=== PATIENT | male | born 1955 | race Caucasian/White ===

== ENCOUNTER 2017-10-17 21:55 | Emergency (ER) | payer SELFPAY ==
--- NOTE | 2017-10-17 22:36 | EDM.PDOC ---
ED HPI GENERAL MEDICAL PROBLEM - General Chief Complaint: General Stated Complaint: RIGHT LEG Time Seen by Provider: 10/17/17 21:59 Source of Information: Reports: Patient, EMS, Family History Limitations: Reports: No Limitations - History of Present Illness INITIAL COMMENTS - FREE TEXT/NARRATIVE: Salomón is a 62 year old male who presents to the ED via private vehicle and police and EMS escort with c/o right sided weakness and slurred speech. His reports that yesterday around 1600 she noticed he was dragging his leg while they were in [employer] shopping. She reports she asked him about it and he reported he was "tired." She reports that throughout the day today she noticed he was dragging his right leg and was more weak on the right side. She reports he even had a fall due to this. She reports that he also started slurring his speech more. He refused to come in to the ED throughout the day. Shay reports she called his brother in law, who then came over and tried to convince him to come to the ED. He continued to refuse. EMS and police were called and eventually convinced him to present to the ED. He was brought in via private vehicle by his fiance. He reports he does not doctor regular. He does not take any medications, nor does he check his blood pressure. He reports he was on medications for blood pressure, but stopped taking them about 3 years ago. He reports his previous PCP "kept trying to get him to come in but he wouldn't." NIH upon arrival was 6. Patient is alert and oriented with slurred speech. Patient immediately sent to CT. - Related Data Allergies Allergy/AdvReac Type Severity Reaction Status Date / Time No Known Allergies Allergy Verified 10/17/17 22:00 Home Meds: Home Meds . [No Known Home Meds] 10/17/17 [History] ED EXAM, GENERAL - Physical Exam Exam: See Below Exam Limited By: No Limitations General Appearance: Alert, WD/WN, No Apparent Distress Eye Exam: Bilateral Eye: EOMI, Normal Fundi, Normal Inspection, PERRL Head: Atraumatic, Normocephalic Neck: Normal Inspection, Supple, Non-Tender, Full Range of Motion Respiratory/Chest: No Respiratory Distress, Lungs Clear, Normal Breath Sounds, No Accessory Muscle Use, Chest Non-Tender Cardiovascular: Normal Peripheral Pulses, Regular Rate, Rhythm, No Edema, No Gallop, No JVD, No Murmur, No Rub Peripheral Pulses: 2+: Radial (L), Radial (R), Dorsalis Pedis (L), Dorsalis Pedis (R) GI/Abdominal: Normal Bowel Sounds, Soft, Non-Tender, No Organomegaly, No Distention, No Abnormal Bruit, No Mass Back Exam: Normal Inspection, Full Range of Motion, NT Extremities: Normal Inspection, Normal Range of Motion, Non-Tender, No Pedal Edema, Normal Capillary Refill, Other (4/5 weaness to RUE & RLE) Neurological: Alert, Oriented, CN II-XII Intact, Normal Cognition, No Motor/ Sensory Deficits, Abnormal Gait (drags RLE) Psychiatric: Normal Affect, Normal Mood Skin Exam: Warm, Dry, Intact, Normal Color, No Rash Lymphatic: No Adenopathy Course - Vital Signs Last Recorded V/S: Last Vital Signs Temp 98.2 F 10/17/17 22:04 Pulse 82 10/17/17 23:15 Resp 18 10/17/17 22:25 BP 220/140 H 10/17/17 23:15 Pulse Ox 98 10/17/17 22:25 - Orders/Labs/Meds Orders: Active Orders 24 hr Category Date Time Status Head wo Cont [CT] Stat Exams 10/17/17 22:12 Taken Labetalol [Normodyne] Med 10/17/17 23:26 Once 20 mg IVPUSH ONETIME ONE Labs: Laboratory Tests 10/17/17 10/17/17 10/17/17 Range/Units 22:10 22:10 22:12 WBC 7.0 (5.0-10.0) 10^3/uL RBC 4.60 (4.50-6.00) 10^6/uL Hgb 14.5 (14.0-18.0) g/dL Hct 42.8 (40.0-54.0) % MCV 93.0 (82.0-94.0) fL MCH 31.5 (27.0-32.0) pg MCHC 33.9 (33.0-38.0) g/dL RDW Coeff of Julio Cesar 14.4 (11.0-15.0) % Plt Count 145 L (150-400) 10^3/uL Neut % (Auto) 60.8 (35-85) % Lymph % (Auto) 25.9 (10-55) % [place] % (Auto) 11.2 (0-16) % Eos % (Auto) 1.7 (0-5) % Baso % (Auto) 0.4 (0-3) % Neut # (Auto) 4.24 (1.80-7.00) 10^3/uL Lymph # (Auto) 1.81 (1.00-4.80) 10^3/uL [place] # (Auto) 0.78 (0.00-0.80) 10^3/uL Eos # (Auto) 0.12 (0.00-0.45) 10^3/uL Baso # (Auto) 0.03 10^3/uL PT 10.7 (9.7-12.3) SEC INR 1.03 (0.92-1.18) APTT 26.1 (23.2-32.3) SEC Sodium (136-145) mEq/L Potassium (3.5-5.0) mEq/L Chloride (98-106) mEq/L Carbon Dioxide (21-32) mmol/L BUN (7-18) mg/dL Creatinine (0.7-1.3) mg/dL Est Cr Clr Drug Dosing mL/min Estimated GFR (MDRD) (>=60) mL/min Glucose (75-99) mg/dL Calcium (8.4-10.1) mg/dL Total Bilirubin (0.0-1.0) mg/dL AST (15-37) U/L ALT (12-78) U/L Alkaline Phosphatase (46-116) U/L Lactate Dehydrogenase (100-190) U/L Creatine Kinase (35-232) U/L Troponin I (0.00-0.06) ng/mL Total Protein (6.4-8.2) g/dL Albumin (3.4-5.0) g/dL Urine Color Yellow (YELLOW) Urine Appearance Clear (CLEAR) Urine pH 7.0 (4.5-8.0) Ur Specific [place] 1.015 (1.003-1.020) Urine Protein 30 H (NEGATIVE) mg/dL Urine Glucose (UA) Negative (NEGATIVE) mg/dL Urine Ketones Negative (NEGATIVE) mg/dL Urine Occult Blood Trace-lysed H (NEGATIVE) Urine Nitrite Negative (NEGATIVE) Urine Bilirubin Negative (NEGATIVE) Urine Urobilinogen 0.2 (0.2-1.0) EU/dL Ur Leukocyte Esterase Negative (NEGATIVE) Urine RBC Not seen (0-5) /HPF Urine WBC Not seen (0-5) /HPF Ur Squamous Epith Cells Occasional H (NOT SEEN) /HPF Urine Bacteria Occasional H (NOT SEEN) /HPF 10/17/17 Range/Units 22:12 WBC (5.0-10.0) 10^3/uL RBC (4.50-6.00) 10^6/uL Hgb (14.0-18.0) g/dL Hct (40.0-54.0) % MCV (82.0-94.0) fL MCH (27.0-32.0) pg MCHC (33.0-38.0) g/dL RDW Coeff of Julio Cesar (11.0-15.0) % Plt Count (150-400) 10^3/uL Neut % (Auto) (35-85) % Lymph % (Auto) (10-55) % [place] % (Auto) (0-16) % Eos % (Auto) (0-5) % Baso % (Auto) (0-3) % Neut # (Auto) (1.80-7.00) 10^3/uL Lymph # (Auto) (1.00-4.80) 10^3/uL [place] # (Auto) (0.00-0.80) 10^3/uL Eos # (Auto) (0.00-0.45) 10^3/uL Baso # (Auto) 10^3/uL PT (9.7-12.3) SEC INR (0.92-1.18) APTT (23.2-32.3) SEC Sodium 138 (136-145) mEq/L Potassium 4.1 (3.5-5.0) mEq/L Chloride 105 (98-106) mEq/L Carbon Dioxide 30 (21-32) mmol/L BUN 21 H D (7-18) mg/dL Creatinine 1.4 H (0.7-1.3) mg/dL Est Cr Clr Drug Dosing 67.06 mL/min Estimated GFR (MDRD) 52 L (>=60) mL/min Glucose 107 H (75-99) mg/dL Calcium 9.6 (8.4-10.1) mg/dL Total Bilirubin 0.7 (0.0-1.0) mg/dL AST 32 (15-37) U/L ALT 50 (12-78) U/L Alkaline Phosphatase 66 (46-116) U/L Lactate Dehydrogenase 261 H (100-190) U/L Creatine Kinase 289 H (35-232) U/L Troponin I 0.136 H (0.00-0.06) ng/mL Total Protein 7.2 (6.4-8.2) g/dL Albumin 4.1 (3.4-5.0) g/dL Urine Color (YELLOW) Urine Appearance (CLEAR) Urine pH (4.5-8.0) Ur Specific [place] (1.003-1.020) Urine Protein (NEGATIVE) mg/dL Urine Glucose (UA) (NEGATIVE) mg/dL Urine Ketones (NEGATIVE) mg/dL Urine Occult Blood (NEGATIVE) Urine Nitrite (NEGATIVE) Urine Bilirubin (NEGATIVE) Urine Urobilinogen (0.2-1.0) EU/dL Ur Leukocyte Esterase (NEGATIVE) Urine RBC (0-5) /HPF Urine WBC (0-5) /HPF Ur Squamous Epith Cells (NOT SEEN) /HPF Urine Bacteria (NOT SEEN) /HPF Meds: Medications Discontinued Medications Generic Name Dose Route Start Last Admin Trade Name Freq PRN Reason Stop Dose Admin Labetalol HCl 20 mg 10/17/17 22:50 10/17/17 22:54 Normodyne IVPUSH 10/17/17 22:51 20 mg ONETIME ONE Administration Protocol - Re-Assessments/Exams Free Text/Narrative Re-Assessment/Exam: 10/17/17 22:[address], EKG, and lab results with patient and significant other. CT reveals nonspecific findings, unable to rule out acute infarct. No hemorrhage. Labs all stable. Troponin indeterminant. EKG reveals NSR with sinus arrythmia and RBBB. Discussed case with Dr. España (Neurology) [facility]. Recommend admission to hospitalist service for further workup and management. 10/17/17 22:[address] Prajapati (hospitalist) who accepted the patient for transfer. Patient is outside of the window for TPA or any neurological intervention given last known well of 1600 on 10/16/2017. 10/17/17 22:57 Discussed risks and benefits of transfer. Risks of transfer include worsening of condition, , or MVA enroute. Benefits of transfer include higher level of care, neurology consultation. Risks of nontransfer include worsening of condition, , and no neurological consultation. Benefits of nontransfer include close proximity to home and convenience. Patient voices understanding and is agreeable to transfer to [facility]. Departure - Departure Time of Disposition: 23:06 Disposition: DC/Tfer to Acute Hospital 02 Condition: Fair Clinical Impression: CVA, Cerebrovascular accident, Hypertensive urgency - Discharge Information *PRESCRIPTION DRUG MONITORING PROGRAM REVIEWED*: Not Applicable *COPY OF PRESCRIPTION DRUG MONITORING REPORT IN PATIENT JOEL: Not Applicable Referrals: Smooth Moncada PA-C [Primary Care Provider] - Forms: ED Department Discharge - Problem List & Annotations (1) CVA, Cerebrovascular accident SNOMED Code(s): 974842865 Code(s): I63.9 - CEREBRAL INFARCTION, UNSPECIFIED Status: Acute Priority : High Current Visit: Yes (2) Hypertensive urgency SNOMED Code(s): 003041011 Code(s): I16.0 - HYPERTENSIVE URGENCY Status: Acute Priority: High Current Visit: Yes - Problem List Review Problem List Initiated/Reviewed/Updated: Yes - My Orders Last 24 Hours: My Active Orders 10/17/17 22:12 Head wo Cont [CT] Stat 10/17/17 23:26 Labetalol [Normodyne] 20 mg IVPUSH ONETIME ONE - Assessment/Plan Last 24 Hours: My Active Orders 10/17/17 22:12 Head wo Cont [CT] Stat 10/17/17 23:26 Labetalol [Normodyne] 20 mg IVPUSH ONETIME ONE Plan: Patient will be transferred to [facility] Intermediate Critical Care Unit for further workup and management. He is outside the window for TPA or any neurologic intervention.
[2017-10-17] MEDS: Labetalol 100 MG/20 ML MDV IVPUSH ONE (22:54)
--- NOTE | 2017-10-17 23:21 | EDM.PDOC ---
ED HPI GENERAL MEDICAL PROBLEM - General Chief Complaint: General Stated Complaint: RIGHT LEG Time Seen by Provider: 10/17/17 21:59 Source of Information: Reports: Patient, EMS, Family History Limitations: Reports: No Limitations - History of Present Illness INITIAL COMMENTS - FREE TEXT/NARRATIVE: Salomón is a 62 year old male who presents to the ED via private vehicle and police and EMS escort with c/o right sided weakness and slurred speech. His reports that yesterday around 1600 she noticed he was dragging his leg while they were in [employer] shopping. She reports she asked him about it and he reported he was "tired." She reports that throughout the day today she noticed he was dragging his right leg and was more weak on the right side. She reports he even had a fall due to this. Denies injuries with fall. She reports that he also started slurring his speech more. He refused to come in to the ED throughout the day. Shay reports she called his brother in law, who then came over and tried to convince him to come to the ED. He continued to refuse. EMS and police were called and eventually convinced him to present to the ED. He was brought in via private vehicle by his fiance. He reports he does not doctor regular. He does not take any medications, nor does he check his blood pressure. He reports he was on medications for blood pressure, but stopped taking them about 3 years ago. He reports his previous PCP "kept trying to get him to come in but he wouldn't." NIH upon arrival was 6. See attached documentation. Patient is alert and oriented with slurred speech. Patient immediately sent to CT. Onset Date: 10/16/17 Onset Time: 16:00 Associated Symptoms: Reports: Weakness (RLE & RUE), Other (slurred speech). Denies: Confusion, Chest Pain, Cough, cough w sputum, Diaphoresis, Fever/Chills , Headaches, Loss of Appetite, Malaise, Nausea/Vomiting, Rash, Seizure, Shortness of Breath, Syncope Treatments TANK COOPER: Reports: Aspirin - Related Data Allergies Allergy/AdvReac Type Severity Reaction Status Date / Time No Known Allergies Allergy Verified 10/17/17 22:00 Home Meds: Home Meds . [No Known Home Meds] 10/17/17 [History] Past Medical History Cardiovascular History: Reports: Hypertension - Past Surgical History GI Surgical History: Reports: Appendectomy Male Surgical History: Reports: Vasectomy Social & Family History - Family History Family Medical History: Noncontributory - Tobacco Use Smoking Status *Q: Never Smoker Second Hand Smoke Exposure: Yes ED ROS GENERAL - Review of Systems Review Of Systems: See Below Constitutional: Reports: Weakness (Right sided). Denies: Fever, Chills, Fatigue HEENT: Reports: No Symptoms Respiratory: Reports: No Symptoms Cardiovascular: Reports: No Symptoms Endocrine: Reports: No Symptoms GI/Abdominal: Reports: No Symptoms : Reports: No Symptoms Musculoskeletal: Reports: No Symptoms Skin: Reports: No Symptoms Neurological: Reports: Weakness (RUE & RLE), Change in Speech (slurred), Gait Disturbance (drag RLE). Denies: Confusion, Dizziness, Headache, Numbness, Paresthesia, Pre-Existing Deficit, Seizure, Syncope, Tingling, Tremors Psychiatric: Reports: No Symptoms Hematologic/Lymphatic: Reports: No Symptoms Immunologic: Reports: No Symptoms ED EXAM, NEURO - Physical Exam Exam: See Below Exam Limited By: No Limitations General Appearance: Alert, WD/WN, No Apparent Distress Eye Exam: Bilateral Eye: EOMI, Normal Fundi, Normal Inspection, PERRL Head Exam: Atraumatic, Normocephalic Neck: Normal Inspection, Supple, Non-Tender, Full Range of Motion Respiratory/Chest: No Respiratory Distress, Lungs Clear, Normal Breath Sounds, No Accessory Muscle Use, Chest Non-Tender Cardiovascular: Normal Peripheral Pulses, Regular Rate, Rhythm, No Edema, No Gallop, No JVD, No Murmur, No Rub Neurological: Alert, Normal Mood/Affect, Normal Dorsiflexion, CN II-XII Intact, Normal Plantar Flexion, Normal Reflexes, Abnormal Gait Back Exam: Normal Inspection, Full Range of Motion, NT Extremities: Normal Inspection, Normal Range of Motion, Non-Tender, No Pedal Edema, Normal Capillary Refill Psychiatric: Normal Affect, Normal Mood EKG INTERPRETATION EKG Date: 10/17/17 Rhythm: NSR [place]: Normal P-Wave: Present QRS: RBBB ST-T: Normal QT: Normal Comparison: NA - No Prior EKG *Q Meaningful Use (ADM) - Stroke *Q Aspirin Contraindications Stroke *Q: Other (Use Special Inst) (Patient took aspirin at home) Antithrombotic Contraindications Stroke *Q: Med/TX Not Indicated/Need Thrombolytic/Fibrinolytic Contraindications Stroke *Q: Med/TX Not Indicated/Need Statin Contraindications Stroke *Q: Patient Noncompliant Course - Vital Signs Last Recorded V/S: Last Vital Signs Temp 98.2 F 10/17/17 22:04 Pulse 82 10/17/17 23:15 Resp 18 10/17/17 22:25 BP 220/140 H 10/17/17 23:15 Pulse Ox 98 10/17/17 22:25 - Orders/Labs/Meds Orders: Active Orders 24 hr Category Date Time Status Head wo Cont [CT] Stat Exams 10/17/17 22:12 Taken Labs: Laboratory Tests 10/17/17 10/17/17 10/17/17 Range/Units 22:10 22:10 22:12 WBC 7.0 (5.0-10.0) 10^3/uL RBC 4.60 (4.50-6.00) 10^6/uL Hgb 14.5 (14.0-18.0) g/dL Hct 42.8 (40.0-54.0) % MCV 93.0 (82.0-94.0) fL MCH 31.5 (27.0-32.0) pg MCHC 33.9 (33.0-38.0) g/dL RDW Coeff of Julio Cesar 14.4 (11.0-15.0) % Plt Count 145 L (150-400) 10^3/uL Neut % (Auto) 60.8 (35-85) % Lymph % (Auto) 25.9 (10-55) % [place] % (Auto) 11.2 (0-16) % Eos % (Auto) 1.7 (0-5) % Baso % (Auto) 0.4 (0-3) % Neut # (Auto) 4.24 (1.80-7.00) 10^3/uL Lymph # (Auto) 1.81 (1.00-4.80) 10^3/uL [place] # (Auto) 0.78 (0.00-0.80) 10^3/uL Eos # (Auto) 0.12 (0.00-0.45) 10^3/uL Baso # (Auto) 0.03 10^3/uL PT 10.7 (9.7-12.3) SEC INR 1.03 (0.92-1.18) APTT 26.1 (23.2-32.3) SEC Sodium (136-145) mEq/L Potassium (3.5-5.0) mEq/L Chloride (98-106) mEq/L Carbon Dioxide (21-32) mmol/L BUN (7-18) mg/dL Creatinine (0.7-1.3) mg/dL Est Cr Clr Drug Dosing mL/min Estimated GFR (MDRD) (>=60) mL/min Glucose (75-99) mg/dL Calcium (8.4-10.1) mg/dL Total Bilirubin (0.0-1.0) mg/dL AST (15-37) U/L ALT (12-78) U/L Alkaline Phosphatase (46-116) U/L Lactate Dehydrogenase (100-190) U/L Creatine Kinase (35-232) U/L Troponin I (0.00-0.06) ng/mL Total Protein (6.4-8.2) g/dL Albumin (3.4-5.0) g/dL Urine Color Yellow (YELLOW) Urine Appearance Clear (CLEAR) Urine pH 7.0 (4.5-8.0) Ur Specific [place] 1.015 (1.003-1.020) Urine Protein 30 H (NEGATIVE) mg/dL Urine Glucose (UA) Negative (NEGATIVE) mg/dL Urine Ketones Negative (NEGATIVE) mg/dL Urine Occult Blood Trace-lysed H (NEGATIVE) Urine Nitrite Negative (NEGATIVE) Urine Bilirubin Negative (NEGATIVE) Urine Urobilinogen 0.2 (0.2-1.0) EU/dL Ur Leukocyte Esterase Negative (NEGATIVE) Urine RBC Not seen (0-5) /HPF Urine WBC Not seen (0-5) /HPF Ur Squamous Epith Cells Occasional H (NOT SEEN) /HPF Urine Bacteria Occasional H (NOT SEEN) /HPF 10/17/ Range/Units 22:12 WBC (5.0-10.0) 10^3/uL RBC (4.50-6.00) 10^6/uL Hgb (14.0-18.0) g/dL Hct (40.0-54.0) % MCV (82.0-94.0) fL MCH (27.0-32.0) pg MCHC (33.0-38.0) g/dL RDW Coeff of Julio Cesar (11.0-15.0) % Plt Count (150-400) 10^3/uL Neut % (Auto) (35-85) % Lymph % (Auto) (10-55) % [place] % (Auto) (0-16) % Eos % (Auto) (0-5) % Baso % (Auto) (0-3) % Neut # (Auto) (1.80-7.00) 10^3/uL Lymph # (Auto) (1.00-4.80) 10^3/uL [place] # (Auto) (0.00-0.80) 10^3/uL Eos # (Auto) (0.00-0.45) 10^3/uL Baso # (Auto) 10^3/uL PT (9.7-12.3) SEC INR (0.92-1.18) APTT (23.2-32.3) SEC Sodium 138 (136-145) mEq/L Potassium 4.1 (3.5-5.0) mEq/L Chloride 105 (98-106) mEq/L Carbon Dioxide 30 (21-32) mmol/L BUN 21 H D (7-18) mg/dL Creatinine 1.4 H (0.7-1.3) mg/dL Est Cr Clr Drug Dosing 67.06 mL/min Estimated GFR (MDRD) 52 L (>=60) mL/min Glucose 107 H (75-99) mg/dL Calcium 9.6 (8.4-10.1) mg/dL Total Bilirubin 0.7 (0.0-1.0) mg/dL AST 32 (15-37) U/L ALT 50 (12-78) U/L Alkaline Phosphatase 66 (46-116) U/L Lactate Dehydrogenase 261 H (100-190) U/L Creatine Kinase 289 H (35-232) U/L Troponin I 0.136 H (0.00-0.06) ng/mL Total Protein 7.2 (6.4-8.2) g/dL Albumin 4.1 (3.4-5.0) g/dL Urine Color (YELLOW) Urine Appearance (CLEAR) Urine pH (4.5-8.0) Ur Specific Joseph (1.003-1.020) Urine Protein (NEGATIVE) mg/dL Urine Glucose (UA) (NEGATIVE) mg/dL Urine Ketones (NEGATIVE) mg/dL Urine Occult Blood (NEGATIVE) Urine Nitrite (NEGATIVE) Urine Bilirubin (NEGATIVE) Urine Urobilinogen (0.2-1.0) EU/dL Ur Leukocyte Esterase (NEGATIVE) Urine RBC (0-5) /HPF Urine WBC (0-5) /HPF Ur Squamous Epith Cells (NOT SEEN) /HPF Urine Bacteria (NOT SEEN) /HPF Meds: Medications Discontinued Medications Generic Name Dose Route Start Last Admin Trade Name Minaq PRN Reason Stop Dose Admin Labetalol HCl 20 mg 10/17/17 22:50 10/17/17 22:54 Normodyne IVPUSH 10/17/17 22:51 20 mg ONETIME ONE Administration Protocol Labetalol HCl 20 mg 10/17/17 23:26 Normodyne IVPUSH 10/17/17 23:27 ONETIME ONE Protocol - Re-Assessments/Exams Free Text/Narrative Re-Assessment/Exam: 10/17/17 22:[address], EKG, and lab results with patient and significant other. CT reveals nonspecific findings, unable to rule out acute infarct. No hemorrhage. Labs all stable. Troponin indeterminant. EKG reveals NSR with sinus arrythmia and RBBB. Discussed case with Dr. España (Neurology) [facility]. Recommend admission to hospitalist service for further workup and management. 10/17/17 22:[address] Prajapati (hospitalist) who accepted the patient for transfer. Patient is outside of the window for TPA or any neurological intervention given last known well of 1600 on 10/16/2017. 10/17/17 22:57 Discussed risks and benefits of transfer. Risks of transfer include worsening of condition, , or MVA enroute. Benefits of transfer include higher level of care, neurology consultation. Risks of nontransfer include worsening of condition, , and no neurological consultation. Benefits of nontransfer include close proximity to home and convenience. Patient voices understanding and is agreeable to transfer to [facility]. Awaiting trash truck driver. Patient will be transferred via [facility] services. Departure - Departure Time of Disposition: 23:23 Disposition: DC/Tfer to Acute Hospital 02 Condition: Fair Clinical Impression: CVA, Cerebrovascular accident, Hypertensive urgency - Discharge Information *PRESCRIPTION DRUG MONITORING PROGRAM REVIEWED*: Not Applicable *COPY OF PRESCRIPTION DRUG MONITORING REPORT IN PATIENT JOEL: Not Applicable Referrals: Smooth Moncada PA-C [Primary Care Provider] - Forms: ED Department Discharge - Problem List & Annotations (1) CVA, Cerebrovascular accident SNOMED Code(s): 630387558 Code(s): I63.9 - CEREBRAL INFARCTION, UNSPECIFIED Status: Acute Priority : High Current Visit: Yes (2) Hypertensive urgency SNOMED Code(s): 736199901 Code(s): I16.0 - HYPERTENSIVE URGENCY Status: Acute Priority: High Current Visit: Yes - Problem List Review Problem List Initiated/Reviewed/Updated: Yes - My Orders Last 24 Hours: My Active Orders 10/17/17 22:12 Head wo Cont [CT] Stat - Assessment/Plan Last 24 Hours: My Active Orders 10/17/17 22:12 Head wo Cont [CT] Stat Assessment:: CVA Hypertensive Urgency Plan: Patient will be transferred to [facility] Intermediate Critical Care Unit for further workup and management. He is outside the window for TPA or any neurologic intervention. Labatolol administered. Blood pressure did decrease to 220/140. Patient will be transferred via [facility].
[2017-10-17] MEDS ORDERED: Labetalol 100 MG/20 ML MDV IVPUSH ONE (23:26)
== END 2017-10-17 23:45 ==
LOC: CC.ED 21:55
DX: I63.9 Cerebral infarction, unspecified (principal); I16.0 Hypertensive urgency; I10 Essential (primary) hypertension
CPT/HCPCS: 36415; 70450; 80053; 81001; 82550; 83615; 84484; 85025; 85610; 85730; 93005; 96374; 99285; J3490

== ENCOUNTER → 2020-12-08 | Day surgery (SDC) | payer BC ==
[~2020-12-08] MED LIST: Flumazenil 0.1 MG/ML 5 ML MDV ONE; Ketamine 200 MG/20 ML MDV ONE; Metoprolol Tartrate 5 MG/5 ML SDV ONE; Midazolam 1 MG/ML 2 ML SDV ONE; Phenylephrine 1% 10 MG/ML SDV ONE; Propofol 200 MG/20 ML SDV ONE; fentaNYL 100 MCG/2 ML SDV ONE
[2020-12-08] MEDS: Lactated Ringers 1,000 ML IV SCH (07:44)
--- NOTE | 2020-12-12 11:36 | OR ---
DATE OF OPERATION: PREOPERATIVE DIAGNOSIS: SCREENING COLONOSCOPY. POSTOPERATIVE DIAGNOSIS: SCREENING COLONOSCOPY. SURGEON: Yunior Charles MD PROCEDURE: FULL-LENGTH COLONOSCOPY WITH FORCEPS POLYP REMOVAL X1. ANESTHESIA: MAC. COMPLICATIONS: None. SPECIMEN: Tubular adenoma x1. FINDINGS: 1. Full-length colonoscopy. 2. Marginal prep. 3. Small sessile polyp, distal ascending colon. RECOMMENDATIONS: Followup colonoscopy in 5 years. INDICATIONS: The patient was seen for routine physical. He is due for a screening colonoscopy as he never had one. DESCRIPTION OF PROCEDURE: The patient was prepped and draped, placed in the left lateral decubitus position. A lubricated Olympus colonoscope was inserted and ultimately advanced to the cecum. The patient had a lot of liquid stool throughout the colon and most areas were able to be suctioned. There were few smaller areas where we could not, but probably 90% of the colon had a good view. Smaller lesion certainly might have been missed. Upon withdrawal, the cecum and ascending colon appeared benign until its most distal portion. Just in front of the hepatic flexure, the patient had a small sessile polyp removed in its entirety with two forceps biopsies and the rest of the transverse and descending colon appeared benign. Throughout the sigmoid and rectosigmoid area, no signs of any other polyps, masses, ulceration, or bleeding sites. No vascular abnormalities or signs of colitis. The rectal vault was unremarkable. Retroflexion showed no perianal lesions. Air was suctioned. Scope removed without complication. ALISSA/RICO /[id number]
== END ==
LOC: CC.SDS 07:29
PROVIDERS: ATTEND Family Medicine
DX: Z12.11 Encounter for screening for malignant neoplasm of colon (principal); D12.2 Benign neoplasm of ascending colon; I50.30 Unspecified diastolic (congestive) heart failure; I11.0 Hypertensive heart disease with heart failure; I48.91 Unspecified atrial fibrillation; E78.00 Pure hypercholesterolemia, unspecified; E66.9 Obesity, unspecified; J30.9 Allergic rhinitis, unspecified; F32.9 Major depressive disorder, single episode, unspecified; Z79.82 Long term (current) use of aspirin; Z79.01 Long term (current) use of anticoagulants; Z79.899 Other long term (current) drug therapy; Z98.890 Other specified postprocedural states; Z90.49 Acquired absence of other specified parts of digestive tract; Z86.73 Personal history of transient ischemic attack (TIA), and cerebral infarction without residual deficits; Z68.41 Body mass index [BMI] 40.0-44.9, adult
CPT/HCPCS: 00812; J2250; J2370; J2704; J3010; J3490; J7120